=== PATIENT | male | born 1940 | race Caucasian/White ===

== ENCOUNTER → 2019-06-21 | Outpatient (CLI) | payer MEDICARE | END | disposition home or self-care (01) | LOC: LAB 14:01 | PROVIDERS: ATTEND Internal Medicine | DX: E11.9 Type 2 diabetes mellitus without complications (principal) | CPT/HCPCS: 36415; 82043; 83036 ==

== ENCOUNTER → 2019-10-08 | Outpatient (CLI) | payer MEDICARE | END | disposition home or self-care (01) | LOC: LAB 12:32 | PROVIDERS: ATTEND Internal Medicine | DX: Z12.11 Encounter for screening for malignant neoplasm of colon (principal); E11.9 Type 2 diabetes mellitus without complications | CPT/HCPCS: 36415; 82043; 83036 ==

== ENCOUNTER → 2019-10-12 | Outpatient (CLI) | payer MEDICARE | END | disposition home or self-care (01) | LOC: LAB 08:57 | PROVIDERS: ATTEND Internal Medicine | DX: Z12.11 Encounter for screening for malignant neoplasm of colon (principal) | CPT/HCPCS: 82270 ==

== ENCOUNTER → 2020-02-21 | Outpatient (CLI) | payer MEDICARE ==
[2020-02-21 08:16] LABS: Calcium 8.2 mg/dL (8.5-10.1); Potassium 4.4 mmol/L (3.5-5.1)
== END | disposition home or self-care (01) ==
LOC: LAB 07:05
PROVIDERS: ATTEND Internal Medicine
DX: E11.9 Type 2 diabetes mellitus without complications (principal)
CPT/HCPCS: 36415; 80048; 80061; 84154

== ENCOUNTER → 2020-02-24 | Outpatient (CLI) | payer MEDICARE | END | disposition home or self-care (01) | LOC: XYW 10:39 | PROVIDERS: ATTEND Internal Medicine | DX: Z01.810 Encounter for preprocedural cardiovascular examination (principal); I05.0 Rheumatic mitral stenosis; I35.0 Nonrheumatic aortic (valve) stenosis | CPT/HCPCS: 93306 ==

== ENCOUNTER → 2020-11-13 | Outpatient (CLI) | payer MEDICARE, OTHER | END | disposition home or self-care (01) | LOC: LAB 11:59 | PROVIDERS: ATTEND Internal Medicine | DX: Z12.11 Encounter for screening for malignant neoplasm of colon (principal); E11.9 Type 2 diabetes mellitus without complications; E78.5 Hyperlipidemia, unspecified | CPT/HCPCS: 82270 ==

== ENCOUNTER → 2021-02-15 | Outpatient (CLI) | payer MEDICARE, OTHER ==
[2021-02-15 07:44] LABS: Albumin 3.3 g/dL (3.4-5.0); Calcium 8.7 mg/dL (8.5-10.1); Potassium 4.7 mmol/L (3.5-5.1)
[2021-02-15 07:48] LABS: BUN/Creatinine Ratio 18.9; Bilirubin, Total 0.7 mg/dL (0.2-1.0); Total Protein 7.4 g/dL (6.4-8.2)
== END | disposition home or self-care (01) ==
LOC: LAB 07:15
PROVIDERS: ATTEND Internal Medicine
DX: E11.9 Type 2 diabetes mellitus without complications (principal); E78.5 Hyperlipidemia, unspecified
CPT/HCPCS: 36415; 80053; 80061; 83036

== ENCOUNTER → 2021-08-20 | Outpatient (CLI) | payer MEDICARE, OTHER | END | disposition home or self-care (01) | LOC: LAB 12:51 | PROVIDERS: ATTEND Internal Medicine | DX: E11.9 Type 2 diabetes mellitus without complications (principal) | CPT/HCPCS: 36415; 83036 ==

== ENCOUNTER → 2021-12-04 | Outpatient (CLI) | payer MEDICARE, OTHER | END | disposition home or self-care (01) | LOC: LAB 07:01 | PROVIDERS: ATTEND Internal Medicine | DX: E11.9 Type 2 diabetes mellitus without complications (principal); Z12.11 Encounter for screening for malignant neoplasm of colon | CPT/HCPCS: 36415; 82043; 83036 ==

== ENCOUNTER → 2022-01-07 | Outpatient (CLI) | payer MEDICARE, OTHER ==
[~2022-01-07] VITALS: Ht 177.8 cm; Wt 78.0 kg
[~2022-01-07] MED LIST: ADENOSINE 66 MG in GIVE UN-DILUTED 0 ML IV ONE; ADENOSINE 90 MG/30 ML INJ IV ONE
== END | disposition home or self-care (01) ==
LOC: Rad HDHVI 08:23
PROVIDERS: ATTEND Internal Medicine Cardiovascular Disease
DX: Z01.810 Encounter for preprocedural cardiovascular examination (principal); I11.0 Hypertensive heart disease with heart failure; I50.23 Acute on chronic systolic (congestive) heart failure; E11.40 Type 2 diabetes mellitus with diabetic neuropathy, unspecified
CPT/HCPCS: 78452; 93005; 96374; 96375; A9500; J0153

== ENCOUNTER → 2022-01-16 | Outpatient (CLI) | payer MEDICARE, OTHER ==
[2022-01-16 16:47] LABS: Basophils # (auto) 0 10 ^3/uL (0-0.2); Basophils % (auto) 0.4 % (0.0-2.0); Eosinophils # (auto) 0.1 10 ^3/uL (0-0.8); Eosinophils % (auto) 1.5 % (0.0-7.0); Free T4 (Free Thyroxine) 1.01 ng/dL (0.89-1.76); Hematocrit 37.9 % (41.0-53.0); Hemoglobin 13.2 g/dL (13.5-17.5); Lymphocytes # (auto) 1.4 10 ^3/uL (0.4-5.4); Lymphocytes % (auto) 21.7 % (10.0-50.0); Mean Corpuscular Hemoglobin 31.8 pg (28.0-32.0); Mean Corpuscular Hgb Conc. 34.7 g/dL (32.0-36.0); Mean Corpuscular Volume 91.6 fL (80.0-100.0); Monocytes # (auto) 0.5 10 ^3/uL (0-1.3); Monocytes % (auto) 8.1 % (0.0-12.0); Neutrophils # (auto) 4.5 10 ^3/uL (1.6-8.6); Neutrophils % (auto) 68.3 % (37.0-80.0); Red Blood Cells 4.14 10^6/uL (4.5-5.90); Red Cell Distribution Width 13.6 % (11.8-14.3); White Blood Cell 6.6 10^3/uL (4.4-10.8)
[2022-01-16 16:48] LABS: Prostate Specific Antigen 1.19 ng/mL (0.0-4.0)
[2022-01-16 16:52] LABS: Urine Blood Negative /uL (Negative); Urine Specific Gravity 1.026 (1.001-1.035)
[2022-01-16 17:02] LABS: INR 0.99 (0.9-1.15); Partial Thromboplastin Time 26.5 sec (23.6-33.0)
[2022-01-16 17:36] LABS: Potassium 4.5 mmol/L (3.5-5.1)
[2022-01-16 17:37] LABS: Albumin 3.5 g/dL (3.4-5.0); BUN/Creatinine Ratio 20.2; Bilirubin, Total 0.4 mg/dL (0.2-1.0); Calcium 8.6 mg/dL (8.5-10.1); Total Protein 7.6 g/dL (6.4-8.2)
== END | disposition home or self-care (01) ==
LOC: Rad HDHVI 12:41
PROVIDERS: ATTEND Internal Medicine Cardiovascular Disease
DX: Z01.818 Encounter for other preprocedural examination (principal); I70.0 Atherosclerosis of aorta; M47.814 Spondylosis without myelopathy or radiculopathy, thoracic region; C61 Malignant neoplasm of prostate; E11.9 Type 2 diabetes mellitus without complications; D51.3 Other dietary vitamin B12 deficiency anemia; D64.9 Anemia, unspecified; E55.9 Vitamin D deficiency, unspecified; I10 Essential (primary) hypertension; R00.2 Palpitations; R53.1 Weakness; R30.0 Dysuria; R06.02 Shortness of breath; R07.9 Chest pain, unspecified; M25.562 Pain in left knee
CPT/HCPCS: 36415; 71046; 80053; 80061; 81003; 82607; 83036; 84153; 84403; 84439; 84443; 85025; 85610; 85730

== ENCOUNTER 2024-08-24 08:33 | Emergency (ER) | payer MEDICARE, OTHER ==
[~2024-08-24] VITALS: Ht 177.8 cm; Wt 82.6 kg
[~2024-08-24 08:33] MED LIST changes: -ADENOSINE 66 MG in GIVE UN-DILUTED 0 ML IV ONE; -ADENOSINE 90 MG/30 ML INJ IV ONE; +ATOR40TA52 PO; +CAR25T PO; +CHOL500021 OR; +FINA5TAB4 PO; +GABA-1250 PO; +METF-371 PO; +OMEP20CA74 OR; +TAMS0.4C39 PO
--- NOTE | 2024-08-24 08:47 | ED.PDOC ---
HPI Comments 83 year old male patient presents to the emergency room for a laceration to the upper right eyebrow. Patient has an abrasion to the right knee. Patient reports that he was walking tripped and fell landing on the right knee and face. Patient denies any LOC. Patient reports that he immediately got up and noticed a significant amount blood and came to the emergency room place. Patient denies taking any blood thinners. Patient reports that his last tetanus shot was 3-4 years. Patient denies any recent falls. Chief Complaint: Laceration on right eyebrow due to a trip Time Seen by MD: 08:41 Reviewed Notes: Nurses Notes, Medications Allergies: Coded Allergies: No Known Drug Allergy (Verified Allergy, Unknown, 01/07/22) Home Meds Reported Medications Cholecalciferol (VITAMIN D) 5,000 Unit Tab, 5000 UNIT OR DAILY, TAB 11/27/17 Gabapentin (Gabapentin) 300 Mg Cap, 300 MG PO DAILY for 30 Days, MG 11/27/17 Atorvastatin Calcium (ATORVASTATIN CALCIUM) 40 Mg Tab, 1 TAB PO QPM, #90 TAB 3 Refills 11/27/17 Levodopa W/Carbidopa (SINEMET 25/100MG) 1 Tab Tb, 3 TAB PO TID 11/27/17 Finasteride (Finasteride) 5 Mg Tab, 5 MG PO HS for 30 Days, MG 11/27/17 Metformin Hydrochloride (Metformin Hcl) 850 Mg Tab, 850 MG PO BID for 30 Days, MG 11/27/17 Omeprazole (PRILOSEC) 20 Mg Cap, 40 MG OR DAILY, CAP 05/30/15 Tamsulosin Hcl (Tamsulosin Hcl) 0.4 Mg Cap, 2 CAP PO HS, CAP 12/21/13 Information Source: Patient Complexity: Simple Laceration Location: Forehead, Other (right eyebrow) Mechanism: Fall Last Tetanus: UTD Laceration Length (cm): 5 Skin Type: Linear Depth of Injury: Skin Tendon Injury: 0% Tender: Mild Discharge: None Erythema: Localized to Wound Edges Associated Signs and Symptoms: None Past Medical History Past Medical History (Other): Parkinson's Surgical History: Denies all surgeries Family History Family History: Reviewed,noncontributory to illness Social History Smoker: Non-Smoker Alcohol: Denies ETOH Use Drugs: Denies Drug Use Lives In: Home Constitutional: denies: chills, diaphoresis, fatigue, fever, malaise, sweats, weakness, others EENTM: denies: blurred vision, double vision, ear bleeding, ear discharge, ear drainage, ear pain, ear ringing, eye pain, eye redness, hearing loss, mouth pain, mouth swelling, nasal discharge, nose bleeding, nose congestion, nose pain, photophobia, tearing, throat pain, throat swelling, voice changes, others Respiratory: denies: cough, hemoptysis, orthopnea, SOB at rest, shortness of breath, SOB with excertion, stridor, wheezing, others Cardiovascular: denies: chest pain, dizzy spells, diaphoresis, Dyspnea on exertion, edema, irregular heart beat, left arm pain, lightheadedness, palpitations, PND, syncope, others Gastrointestinal: denies: abdomen distended, abdominal pain, blood streaked bowels, constipated, diarrhea, dysphagia, difficulty swallowing, hematemesis, melena, nausea, poor appetite, poor fluid intake, rectal bleeding, rectal pain, vomiting, others Genitourinary: denies: burning, dysuria, flank pain, frequency, hematuria, incontinence, penile discharge, penile sore, pain, testicle pain, testicle swelling, urgency, others Neurological: denies: dizziness, fainting, headache, left sided numbness, left sided weakness, numbness, paresthesia, pre-existing deficit, right sided numbness, right sided weakness, seizure, speech problems, tingling, tremors, weakness, others Musculoskeletal: reports: others (Abrasion to right knee) Integumetry: denies: bruises, change in color, change in hair/nails, dryness, lesions, lumps, rash, wounds, others Allergic/Immunocompromised: denies: Difficulty Healing, Frequent Infections, Hives, Itching, others Hematologic/Lymphatic: denies: anemia, blood clots, easy bleeding, easy bruising, swollen glands, others Endocrine: denies: excessive hunger, excessive sweating, excessive thirst, excessive urination, flushing, intolerance to cold, intolerance to heat, unexplained weight gain, unexplained weight loss, others Psychiatric: denies: anxiety, bipolar disorder, depression, hopeless, panic disorder, schizophrenia, sleepless, suicidal, others All Other Systems: Reviewed and Negative Physical Exam Exam Comments Patient has a 5 cm laceration of the right eyebrow, bleeding controlled. Patient has an abrasion to the right knee approx. 4 cm in diameter General Appearance: No Apparent Distress, Normal HEENT: Head (normocephalic, no erythema, no contusions, no tenderness, ), Normal ENT Inspection, PERRL/EOMI, Pharynx Normal, TMs Normal Neck: Full Range of Motion, Non-Tender, Normal, Normal Inspection Respiratory: Chest Non-Tender, Lungs Clear, No Accessory Muscle Use, No Respiratory Distress, Normal Breath Sounds Cardiovascular: No Edema, No JVD, No Murmur, No Gallop, Normal Peripheral Pulses, Regular Rate/Rhythm Breast Exam: Deferred Gastrointestinal: No Organomegaly, Non Tender, No Pulsatile Mass, Normal Bowel Sounds, Soft Genitalia: Deferred Pelvic: Deferred Rectal: Deferred Extremities: No calf tenderness, Normal capillary refill, Normal inspection, Normal range of motion, Non-tender, No pedal edema Musculoskeletal : Location: Right Extremity Location: Knee Apperance: Other (abrasion approx. 3cm in diameter) Neurologic: Alert, portable machine cutter II-XII nml as Tested, No Motor Deficits, Normal Affect, Normal Mood, No Sensory Deficits Cerebellar Function: Normal Reflexes: Normal Skin: Dry, Lacerations (5cm in diameter, right eyebrow), Normal Color, Warm Lymphatic: No Adenopathy Was a procedure done? Was a procedure done?: Yes Sedation Sedation?: No Laceration Repair : Location right eyebrow Length 5cm Anesthetic: Lidocaine, Without epi Laceration Repair Prep: Saline, Betadine, Manual Scrub Laceration Repair Wound Comple: epidermis/dermis repair Laceration Repair: Number of sutures (5), Size (5.0), Prolene, Simple, Bacitracin, Non-adherent gauze Informed consent obtained: Yes Risks, benefits, and alternati: Yes Images 1 - 5cm linear laceration with bleeding controlled, mild inflammation surrounding wound edges, no palpable stepoffs with palpation, no visible ecchymosis or hematoma. mild tenderness to palpation. Differential diagnosis Generic Laceration: Abrasion/Contusion, Laceration Differential Diagnosis: Closed Head Injury X-Ray, Labs, Meds, VS Vital Signs Date Time Temp Pulse Resp B/P (MAP) Pulse Ox O2 Delivery O2 Flow Rate FiO2 08/24/24 10:22 98.2 62 16 128/67 (87) 95 98.2 08/24/24 10:22 62 16 95 Room Air* 0 21 08/24/24 09:34 18 98 Room Air* 0 21 08/24/24 08:58 97.0 58 16 159/66 (97) 95 Current Medications Medications (Trade) Dose Ordered Sig/Nandini Route Start Time Stop Time Status Last Admin Neomycin/ Polymyxin/ Bacitracin (Triple Antibiotic) 1 applic ONCE ONCE TOP 08/24/24 09:15 08/24/24 09:16 DC 08/24/24 09:33 X-Ray, Labs, Meds, VS Comment 83 year old male patient presents to the clinic for a trip and fall this morning while walking around his vehicle. Patient is alert and oriented x4. No focal deficits. Neuro exam unremarkable. There are no red flags. Strength 5/5 throughout.Pt denies any visual changes. Patient denies any headache or dizziness.Pt denies pain with any extraocular movements. Pt denies neck pain. Patient denies any recent trip or falls. Patient denies taking any blood thinners. Patient reports last tetanus was 3-4 years ago. Tests considered but not ordered were: CT head, CT maxillofacial, CT C-Spine, right knee xray as physical examination was reassuring and deemed these unnecessary. No c-spine tenderness, full ROM to the right knee, no step -offs noted, no swelling or tenderness to the facial region. No neuro deficits. Patient has a laceration to the right eyebrow approximately 5 cm in diameter, bleeding is controlled with mild inflammation. Patient states that pain as a 2/10. Laceration approximated with 5 sutures using 5.0 prolene and 1% lidocaine, patient tolerated procedure well. Bacitracin applied to wound. Patient advised to keep laceration clean and dry for 24 hours. Patient advised to monitor for signs of infection such as erythema or drainage. Patient advised that sutures are dissolvable and do not need to be removed. Patient advised to return to the emergency room if he experiences dizziness, instability, personality changes, nausea or vomiting. Patient also advised to monitor wound for signs of infection. 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 On re-evaluation patient has symptomatic improvement. Patient is stable for discharge at this time. All test results and diagnostic imaging have been interpreted. All diagnostic findings, discharge care, and education instruction provided to the patient. Follow-up with PCP in 2-3 days Patient verbalized understanding, discharge instructions and agrees to treatment plan Vital signs are stable Patient is ambulatory Patient advised of which symptoms necessitate a return visit to the emergency room. Patient to return emergency room for any new worsening symptoms. Patient is aware that the purpose of this visit is for an acute medical emergency requiring emergent stabilization. Chronic conditions, including malignancies have not been ruled out. Patient is instructed to follow up with PCP as directed for continued care and workup. If unable to arrange follow up, patient is to return to the emergency room for reassessment. Patient was given verbal and written discharge instructions and acknowledges understanding Time of 1ST Reevaluation: 09:20 Reevaluation 1ST: Improved Patient Education/Counseling: Diagnosis, Treatment, Prognosis Family Education/Counseling: No Family Present Departure 1 Departure Time of Disposition: 09:39 Impression: Primary Impression: Laceration of eyebrow, right Qualified Codes: S01.111A - Laceration without foreign body of right eyelid and periocular area, initial encounter Additional Impressions: Fall (on)(from) sidewalk curb, initial encounter Abrasion of knee, right Qualified Codes: S80.211A - Abrasion, right knee, initial encounter Disposition: HOME / SELF CARE / HOMELESS Condition: Stable Discharged With: Self Critical Care Note Critical Care Time?: No Stability Stability form required: No Heart Score Heart Score: Heart Score Response (Comments) Value History N/A 0 EKG N/A 0 Age N/A 0 Risk Factors N/A 0 Troponin N/A 0 Total 0 NARCISO MALDONADO Aug 24, 2024 08:47
[2024-08-24] MEDS: NEOMYCIN-BACITRACIN-POLYM UNITDOSE PKG TOP OINT TOP ONE (09:33)
[2024-08-24] MEDS: LIDOCAINE 1% (LOCAL ANESTH.) PF 5ml SDV ID ONE (09:33)
[2024-08-24 09:34] VITALS: RESP 18; O2SAT 98
[2024-08-24 10:22] VITALS: BP 128/67; PULSE 62; RESP 16; TEMP 98.2; O2SAT 95
== END 2024-08-24 10:37 | disposition home or self-care (01) ==
LOC: ER 08:33
DX: S01.111A Laceration without foreign body of right eyelid and periocular area, initial encounter (principal); S80.211A Abrasion, right knee, initial encounter; G20.A1 Parkinson's disease without dyskinesia, without mention of fluctuations; Z79.84 Long term (current) use of oral hypoglycemic drugs; Z79.899 Other long term (current) drug therapy; W01.0XXA Fall on same level from slipping, tripping and stumbling without subsequent striking against object, initial encounter; Y93.01 Activity, walking, marching and hiking; Y92.89 Other specified places as the place of occurrence of the external cause; Y99.8 Other external cause status
CPT/HCPCS: 12013